=== PATIENT | female | born 1975 | race African-American/Black ===

== ENCOUNTER 2021-06-24 08:10 | Outpatient (CLI) | payer OTHER ==
--- NOTE | 2021-06-24 15:24 | Magnetic Resonance Report ---
MRI BREAST BILATERAL WITH AND WITHOUT CONTRAST, 06/24/2021 CLINICAL INFORMATION / INDICATION: BREAST CANCER SCREENING OTHER THAN MAMMOGRAM Z12.39. TECHNIQUE: Axial T1 and T2-weighted fat sat images were obtained precontrast. 12 cc Clariscan contras t was injected intravenously and serial axial T1 weighted images with fat saturation were obtained. 3 -D MIP projections, kinetic analysis, and subtraction imaging were utilized to evaluate. A dedicated 8-channel breast coil was used for image acquisition. COMPARISON: No relevant prior imaging study available. FINDINGS: BREAST DENSITY: Extremely dense. BACKGROUND ENHANCEMENT: Low level background enhancement within both breasts. RIGHT BREAST: No dominant mass or suspicious area of enhancement in the right breast. LEFT BREAST: No dominant mass or suspicious area of enhancement in the left breast. AXILLAE: No pathologically enlarged axillary lymph nodes. ADDITIONAL FINDINGS: Limited imaging of the thorax and upper abdomen demonstrates no focal abnormalit y. IMPRESSION: 1. No MRI evidence of malignancy. Follow up recommendation: Routine yearly screening mammogram. BI-RADS Category 1: NEGATIVE. Signer Name: Noé Llanos MD Signed: 06/24/2021 3:20 PM Workstation Name: [employer]
== END 2021-06-24 08:11 | disposition home or self-care (01) ==
LOC: SPVIMAG 08:10
DX: Z12.39 Encounter for other screening for malignant neoplasm of breast (principal)
CPT/HCPCS: A9575; C8908; 77049